=== PATIENT | male | born 1980 | race Caucasian/White ===

== ENCOUNTER → 2019-05-09 | Outpatient (CLI) | payer BC ==
--- NOTE | 2019-05-09 10:00 | RAD ---
3 views right foot 05/09/2019 INDICATION: Right foot pain COMPARISON STUDY: None available findings: There is a minimally displaced fracture involving the distal aspect of the fifth proximal phalanx. The fracture involves the articular surface with mild angulation. No dislocation is seen. No other fractures are identified. No definitive soft tissue abnormalities are seen. IMPRESSION: Mildly displaced fracture of the fifth proximal phalanx as described. Electronically signed by: Lm King MD (05/09/2019 9:56 AM) [id number]
== END | disposition home or self-care (01) ==
LOC: DXRAD 09:19
PROVIDERS: ATTEND Family Medicine
DX: S92.511A Displaced fracture of proximal phalanx of right lesser toe(s), initial encounter for closed fracture (principal); X58.XXXA Exposure to other specified factors, initial encounter; Y93.89 Activity, other specified; Y92.89 Other specified places as the place of occurrence of the external cause; Y99.8 Other external cause status
CPT/HCPCS: 73630